=== PATIENT | female | born 1995 | race Caucasian/White ===

== ENCOUNTER 2025-03-20 03:16 | Inpatient (IN) ==
[2025-03-20] MEDS ORDERED: CALCIUM CARBONATE 500 MG CHEWABLE TAB PO PRN (03:52)
[2025-03-20] MEDS ORDERED: ACETAMINOPHEN 325 MG TAB PO PRN (03:52)
[2025-03-20] MEDS ORDERED: OXYTOCIN 30 UNITS/NSS 30 UNITS/500 ML BAG IV PRN ×2 (03:52→11:31)
[2025-03-20] MEDS ORDERED: LIDOCAINE 1% LOCAL 20 ML VIAL INFIL PRN (03:52)
--- NOTE | 2025-03-20 04:09 | History & Physical Report ---
Date of Service March 20, 2025 Assessment & Plan (1) Post-dates : Plan: admit in labor epidural planned Admission and Anticipated Discharge Date Admission Date: March 20, 2025 History of Present Illness Chief Complaint: romulo aviles Primary Care Provider: Fabiola Griffith PA-C 29 F P0000 at 41 weeks presents to L&D with SROM clear fluid. GBS is positive. course uncomplicated. Allergies Allergy/AdvReac Type Severity Reaction Status Date / Time No Known Allergies Allergy Unverified 03/20/25 03:38 Home Medications Medication Instructions Recorded Confirmed Type ferrous sulfate 325 mg (65 mg 325 mg PO DAILY 03/20/25 03/20/25 History iron) tablet (iron) vits no.124-ferrous fum 1 tab PO DAILY 03/20/25 03/20/25 History 27 mg iron-folic acid 800 mcg tablet ( Vitamin) Patient History Social History Smoking Status: Never smoker Hx Alcohol Use: No Hx Substance Use: No Preferred Language: Gabonese Communication Ability: Effective Clarity Specialists Required: No Beliefs That Will Affect Care: None marital status: Current Living Situation: Spouse Feels Safe at Home: Yes Safety Concerns: Feels Safe At This Time Assistive Devices: Contacts OB History GBS positive anemia in [employer] History neg Physical Exam Constitutional: WD/WN, vitals as above Eyes: PERRL, conjunctivae normal, anicteric sclerae Respiratory: normal respiratory effort Cardiovascular: Rate/Rhythm: regular rate and regular rhythm Gastrointestinal (Abdomen): Inspection/Auscultation: abdomen normal to inspection Musculoskeletal: Extremities: extremities normal to inspection Skin: no rashes, warm and dry Neurologic: patellar DTR's 2+ bilat, sensation intact Psychiatric: A+Ox3, euthymic affect Genitourinary: no vaginal lesions, no adnexal mass Manual OB Exam: + cervical dilation 2 cm and 3 cm, + cervical effacement 80%, + station -2 and + amniotic fluid clear OB Exam Monitor Tracing: + external FHT monitor used, + external uterine monitor used, + category I and + normal FHT variability Results & Data Vital Signs (Past 12 Hours) Vital Signs Temp Pulse Resp BP 03/20/25 03:31 113 H 107/73 03/20/25 03:27 37.0 C 18 Code Status & VTE Plan VTE Prophylaxis Plan VTE Prophylaxis will be ordered: No Monitoring External Monitor Cat 1 (1) Post-dates Post-term type: 40-42 weeks gestation Qualified Code(s): O48.0 - Post-term
[2025-03-20 04:36] LABS: Hematocrit (blood only) 39.4 % (37.0-47.0); Hemoglobin 13.7 g/dL (12.0-16.0); Mean Corpuscular Hemoglobin 31.5 pg (25.0-34.0); Mean Corpuscular Volume 90.6 fL (80.0-100.0); Platelet Count 215 K/uL (130-400); RDW Standard Deviation 42.9 fL (36.4-46.3); Red Blood Count 4.35 M/uL (4.20-5.40); White Blood Count 18.18 K/ul (4.8-10.8)
[2025-03-20] MEDS: LACTATED RINGER'S 1,000 ML IV PRN (04:41)
[2025-03-20] MEDS: PENICILLIN GK 6 MU in DEXTROSE 5% 250 ML IV STA (04:41)
[2025-03-20] MEDS ORDERED: ONDANSETRON INJ 2 MG/ML 2 ML VIAL IV PRN (06:09)
[2025-03-20] MEDS: ONDANSETRON INJ 2 MG/ML 2 ML VIAL ONE (06:12)
[2025-03-20] MEDS ORDERED: ROPIVACAINE 0.5% PF 5 MG/ML 20 ML VIAL EPI PRN (06:16)
[2025-03-20] MEDS ORDERED: NALOXONE HCL 1 MG in SODIUM CHLORIDE 0.9% 1,000 ML IV PRN (06:16)
[2025-03-20] MEDS ORDERED: BUPIVACAINE 0.25% PF 30 ML VIAL EPI PRN (06:16)
[2025-03-20] MEDS ORDERED: NALBUPHINE HCL INJ 10 MG/ML AMP IV PRN (06:16)
[2025-03-20] MEDS ORDERED: SODIUM CHLORIDE 0.9% PF INJ 10 ML VIAL EPI PRN (06:16)
[2025-03-20] MEDS ORDERED: LIDOCAINE 2% MPF LOCAL 5 ML VIAL EPI PRN (06:16)
[2025-03-20] MEDS ORDERED: fentANYL 2 MCG/ML BUPIVacaine 0.125%-NSS 100ML BAG EPI PRN (06:16)
[2025-03-20] MEDS ORDERED: NALOXONE HCL 0.4 MG/1 ML VIAL/CARP IV PRN (06:16)
[2025-03-20] MEDS ORDERED: diphenhydrAMINE 50 MG/ML VIAL IV PRN (06:16)
--- NOTE | 2025-03-20 06:16 | Anesthesiology Consultation ---
Date of Service March 20, 2025 Assessment & Plan Chart Review Chart Review: Acceptable Risk for Labor Epidural Consults Requested none History Height/Weight Height: 5 ft 7 in Weight: 90.265 kg Allergies Allergy/AdvReac Type Severity Reaction Status Date / Time No Known Allergies Allergy Unverified 03/20/25 03:38 Medications Home Medications Medication Instructions Recorded Confirmed Last Taken ferrous sulfate 325 mg (65 mg 325 mg PO DAILY 03/20/25 03/20/25 03/19/25 iron) tablet (iron) vits no.124-ferrous fum 1 tab PO DAILY 03/20/25 03/20/25 03/19/25 27 mg iron-folic acid 800 mcg tablet ( Vitamin) Active Medications Generic Name Dose Route Start Last Admin Trade Name Freq PRN Reason Stop Dose Admin Lactated Ringer's 1,000 mls @ 125 mls/hr 03/20/25 03:52 03/20/25 04:41 Lr IV 03/22/25 03:51 0 mls/hr .Q8H PRN Infusion L&D Protocol Protocol Social History Smoking Status: Never smoker Hx Alcohol Use: No Hx Substance Use: No Physical Exam Vital Signs Last Vital Signs Temp 37.0 C 03/20/25 03:27 Pulse 113 H 03/20/25 03:31 Resp 18 03/20/25 03:27 BP 107/73 03/20/25 03:31 Testing Laboratory Results 03/20/25 04:21
[2025-03-20] MEDS: fentANYL 2 MCG/ML BUPIVacaine 0.125%-NSS 100ML BAG ONE (06:38)
[2025-03-20] MEDS: BUPIVACAINE 0.25% PF 30 ML VIAL ONE (06:39)
[2025-03-20] MEDS: SODIUM CHLORIDE 0.9% PF INJ 10 ML VIAL ONE (06:40)
[2025-03-20] MEDS: LIDOCAINE 2%/EPINEPHRINE 1:200,000 20 ML PF ONE (06:40)
[2025-03-20] MEDS: BUPIVACAINE 0.25% PF 30 ML VIAL EPI STA (07:55)
[2025-03-20] MEDS: LIDOCAINE 2%/EPINEPHRINE 1:200,000 20 ML PF EPI STA (07:56)
[2025-03-20] MEDS: SODIUM CHLORIDE 0.9% PF INJ 10 ML VIAL EPI STA (07:56)
[2025-03-20] MEDS: PENICILLIN GK 3 MU in DEXTROSE 5% 100 ML IV PRN (08:17)
[2025-03-20] MEDS: OXYTOCIN 30 UNITS/NSS 30 UNITS/500 ML BAG IV PRN (08:22)
--- NOTE | 2025-03-20 09:01 | Obstetrical Progress Note ---
Date of Service March 20, 2025 Assessment & Plan Admission and Anticipated Discharge Date Admission Date: March 20, 2025 Subjective Patient is seen and examined. She is a 29-year-old at 41 weeks of gestation who was originally scheduled for induction of labor for postdates for today. She woke up with contractions around 1:30 AM and then felt a gush of fluid leakage around 2:30 AM. Her contractions get more regular and painful after that. She came here around 4 AM when her cervix was 2 to 3 cm, and then she received epidural for pain. She feels comfortable now, no complaints. Her has been uncomplicated except GBS positive. She is receiving second dose of penicillin now. She denies any medical problems, surgeries, she denies any history of STDs including chlamydia, gonorrhea, herpes, denies smoking alcohol or drug use. She takes iron and vitamin B12. Vital signs stable afebrile, heart rate category 1, [place] shows contractions every 1 to 3 minutes, oxytocin is started as 1 milliunits/min, Vaginal exam done by myself, cervix is 7 cm dilated, 80% effaced, head is at 0 station, Continue to monitor closely, All questions were answered. Results & Data Vital Signs (Past 12 Hours) Vital Signs Temp Pulse Resp BP Pulse Ox 03/20/25 08:55 84 99 03/20/25 08:52 96 H 117/76 03/20/25 08:50 86 98 03/20/25 08:45 85 97 03/20/25 08:40 91 H 97 03/20/25 08:37 97 H 113/67 03/20/25 08:35 97 H 97 03/20/25 08:30 101 H 16 98 03/20/25 08:25 115 H 96 03/20/25 08:21 97 H 111/70 03/20/25 08:20 98 H 96 03/20/25 08:15 93 H 96 03/20/25 08:10 101 H 96 03/20/25 08:06 81 108/68 03/20/25 08:05 89 98 03/20/25 08:03 87 94 03/20/25 08:00 85 16 98 03/20/25 07:55 76 94 03/20/25 07:52 89 94 03/20/25 07:51 91 H 101/64 03/20/25 07:50 81 94 03/20/25 07:47 80 94 03/20/25 07:45 86 98 03/20/25 07:41 81 94 03/20/25 07:40 81 96 03/20/25 07:37 95 H 107/65 03/20/25 07:35 80 95 03/20/25 07:30 88 98 03/20/25 07:27 91 H 94 03/20/25 07:25 95 H 97 03/20/25 07:21 83 105/67 03/20/25 07:20 86 97 03/20/25 07:17 88 94 03/20/25 07:15 91 H 96 03/20/25 07:10 90 96 03/20/25 07:05 37.0 C 16 03/20/25 07:05 37.0 C 98 H 16 117/74 96 03/20/25 07:03 97 H 120/76 03/20/25 07:01 87 115/71 03/20/25 07:00 18 03/20/25 07:00 18 03/20/25 07:00 96 03/20/25 07:00 85 03/20/25 07:00 86 128/79 03/20/25 06:57 99 H 110/74 03/20/25 06:55 91 H 123/79 97 03/20/25 06:53 88 117/70 03/20/25 06:51 90 113/69 94 03/20/25 06:50 92 H 96 03/20/25 06:49 89 120/71 03/20/25 06:47 90 117/73 03/20/25 06:45 91 H 122/77 97 03/20/25 06:43 93 H 119/76 03/20/25 06:41 94 H 116/75 03/20/25 06:40 92 H 95 03/20/25 06:39 99 H 114/74 03/20/25 06:37 101 H 123/80 03/20/25 06:35 106 H 120/76 96 03/20/25 06:34 98 H 121/77 03/20/25 06:30 107 H 98 03/20/25 06:25 105 H 98 03/20/25 06:20 120 H 98 03/20/25 05:30 18 03/20/25 05:30 36.7 C 18 03/20/25 03:31 113 H 107/73 03/20/25 03:27 37.0 C 18
[2025-03-20] MEDS: PRENATAL VITAMIN 1 TAB PO SCH (09:23)
[2025-03-20] MEDS: FERROUS SULFATE 325 MG TAB PO SCH (09:23)
[2025-03-20] MEDS: MINERAL OIL 30 ML UDC ONE (11:13)
[2025-03-20] MEDS ORDERED: HYDROCORTISONE ACETATE 25 MG SUPP PR PRN (11:31)
[2025-03-20] MEDS ORDERED: DIPHTHER/TETAN/PERTUS Vaccine (Tdap, Adol/Adult) 0.5mL IM ONE (11:31)
[2025-03-20] MEDS ORDERED: BENZOCAINE 20% SPRY 85 APPLN/85 GM CAN EXT PRN (11:31)
--- NOTE | 2025-03-20 11:33 | Delivery Summary ---
Vaginal Delivery Summary Date of Service March 20, 2025 Vaginal Delivery Summary Patient was found to be fully dilated and desired to push. She pushed for about 40 min and delivered the head and then shoulders with minimal traction. The baby was handed off to the mother. The cord was clampedx2 and cut at 1 minute. The vagina and perineum were checked and found to have 2nd degree perineal and vaginal laceration. Rectal exam was done and noted good sphincter tone. The gloves were changes. The vaginal mucosa was repaired with 2/0 vicryl, continued to perineal body muscles and then skin on subcuticular fashion. The placenta was delivered spontaneously as intact and complete. The uterus was explored and found to be empty. QBL was 350 ml. The fundus was firm. The baby was a viable male , Apgars 8/9, the weight is pending The mother and the baby tolerated the procedure well. No complications happened and I was present during whole procedure.
[2025-03-20] MEDS: METHYLERGONOVINE MALEATE 0.2 MG/ML AMP ONE (11:50)
[2025-03-20] MEDS: MEASLES, MUMPS & RUBELLA VIRUS VACCINE (MMR) 0.5ML VIAL SQ ONE (12:00)
[2025-03-20] MEDS: METHYLERGONOVINE MALEATE 0.2 MG/ML AMP IM ONE (12:01)
--- NOTE | 2025-03-20 14:52 | Anesthesia Procedure Note ---
Date of Service March 20, 2025 Anesthesia Post Epidural Note Vital Signs Vital Signs: Temp Pulse Resp BP Pulse Ox 36.9 C 75 16 114/72 97 03/20/25 09:50 03/20/25 13:21 03/20/25 11:25 03/20/25 13:21 03/20/25 12:00 Notes Mental Status: alert / awake / arousable Nausea / Vomiting: adequately controlled Pain: adequately controlled Airway Patency, RR, SpO2: stable & adequate BP & HR: stable & adequate Hydration State: stable & adequate Neuraxial Anesthesia: was administered and sensory block is resolving Anesthetic Complications: no major complications apparent and Pt Satisfied with anesthetic care Epidural: Removed without complications and With tip intact
[2025-03-20] MEDS: ACETAMINOPHEN 325 MG TAB PO PRN (19:25)
[2025-03-20] MEDS: IBUPROFEN 600 MG TAB PO PRN (19:26)
[2025-03-20] MEDS: DOCUSATE SODIUM 100 MG CAP PO SCH (21:42)
[2025-03-21 03:40] VITALS: RESP 16
[2025-03-21 06:52] LABS: Hematocrit (blood only) 31.7 % (37.0-47.0); Hemoglobin 11.1 g/dL (12.0-16.0); Mean Corpuscular Hemoglobin 32.6 pg (25.0-34.0); Mean Corpuscular Volume 93.0 fL (80.0-100.0); Platelet Count 174 K/uL (130-400); RDW Standard Deviation 44.9 fL (36.4-46.3); Red Blood Count 3.41 M/uL (4.20-5.40); White Blood Count 15.72 K/ul (4.8-10.8)
[2025-03-21] MEDS ORDERED: PRENATAL VITAMIN 1 TAB PO SCH (08:00)
[2025-03-21] MEDS: FERROUS SULFATE 325 MG TAB PO SCH (08:01)
--- NOTE | 2025-03-21 08:41 | Obstetrical Progress Note ---
Date of Service March 21, 2025 Subjective Ambulation: ambulating normally Voiding: no voiding problems Passing Gas:: Yes Diet Tolerance:: regular diet Lochia:: Small Feeding Type:: breast feeding Current Pain Level(1-10): 0 doing well. would like to go home later tonight. Physical Exam Constitutional WD/WN, vitals as above Gastrointestinal (Abdomen) Inspection/Auscultation: abdomen normal to inspection abdomen soft and non-tender. fundus firm below U. Musculoskeletal Extremities: extremities normal to inspection Skin no rashes, warm and dry Neurologic patellar DTR's 2+ bilat, sensation intact Psychiatric A+Ox3, euthymic affect Results & Data Vital Signs (Past 12 Hours) Vital Signs Temp Pulse Resp BP Pulse Ox O2 Del Method 03/21/25 03:30 36.6 C 84 16 104/66 95 Room Air 03/20/25 23:08 36.7 C 86 18 106/68 Laboratory Results Laboratory Results - last 72 hr 03/20/25 03/21/25 04:21 06:23 WBC 18.18 H 15.72 H RBC 4.35 3.41 L Hgb 13.7 11.1 L Hct 39.4 31.7 L MCV 90.6 93.0 MCH 31.5 32.6 MCHC 34.8 35.0 RDW Std Deviation 42.9 44.9 RDW Coeff of Dustin 13.2 13.2 Plt Count 215 174 MPV 10.1 10.3 Treponema pallidum Ab Negative
[2025-03-21] MEDS ORDERED: OXYTOCIN 30 UNITS/NSS 30 UNITS/500 ML BAG IV PRN (09:51)
[2025-03-21 11:22] VITALS: BP 116/74; PULSE 90; TEMP 98.6; O2SAT 98
== END 2025-03-21 14:59 | disposition home or self-care (01) | DRG 807 ==
LOC: 4S1 03:16 → 4E2 14:12